=== PATIENT | female | born 1960 | race Caucasian/White ===

== ENCOUNTER 2018-02-25 22:46 | Emergency (ER) | payer BC ==
[~2018-02-25] VITALS: Ht 160 cm; Wt 88.0 kg
[~2018-02-25 22:46] MED LIST: ALEVE220 MG OR; CAFFEINE; CEPHALEXIN500 MG OR; CIPRO500 MG OR; DETROL LA2 MG OR; METHOCARBAMOL500 MG PO; MYLANT OR; NAPROSYN375 MG PO; NAPROSYN500 MG OR; NAPROXEN SOD550 MG OR; NEXIUM20 M1 OR; NEXIUM40 MG PO; PRILOSEC OTC20 MG OR; PYRIDIUM200 MG OR; TOPAMAX50 MG PO; VESICARE10 MG OR; VESICARE10 MG PO
[2018-02-26 00:07] LABS: HEMATOCRIT 37.9 % (37.0-47.0); HEMOGLOBIN 12.4 g/dl (12.0-16.0); IMMATURE GRANULOCYTES 0.4 % (0.0-1.0); MEAN CELL VOLUME 84.4 fL CALC (80.0-100.0); MEAN CORPUSCULAR HGB 27.6 pG CALC (26.0-32.0); MEAN CORPUSCULAR HGB CONC 32.7 g/L CALC (32.0-36.0); NEUT# 6.06 thou/uL (2.00-7.15); RED BLOOD COUNT 4.49 mill/uL (4.20-5.60); RED CELL DISTRI WIDTH 13.6 % (11.5-15.5); URINE BILIRUBIN - DIPSTICK NEGATIVE (NEGATIVE); URINE BLOOD DIPSTICK TRACE-INTACT (NEGATIVE); URINE COLOR YELLOW; URINE GLUCOSE - DIPSTICK NEGATIVE (NEGATIVE); URINE KETONE NEGATIVE (NEGATIVE); URINE PROTEIN - DIPSTICK NEGATIVE (NEG-TRACE)
[2018-02-26 00:08] LABS: URINE CLARITY CLOUDY
[2018-02-26 00:09] LABS: URINE LEUK ESTERASE SMALL (NEGATIVE); URINE NITRITE - DIPSTICK POSITIVE (Negative)
[2018-02-26 00:15] LABS: URINE BACTERIA MODERATE hpf; URINE MUCUS FEW hpf (NONE-FEW); URINE SQUAMOUS EPITHELIAL CELL FEW EPI/hpf (0-FEW); URINE WBC 20-50 WBC/hpf (0-5)
[2018-02-26 00:17] LABS: ALBUMIN 3.9 g/dL (3.2-5.0); ALKALINE PHOSPHATASE 186 u/l (38-126); ANION GAP 11 (6-22 (CALC)); BILIRUBIN, TOTAL 0.5 mg/dL (0.0-1.4); BUN 22 mg/dL (7-17); BUN/CREATININE RATIO 27 (12-20 (CALC)); CARBON DIOXIDE 27 mmol/l (22-30); CHLORIDE 102 mmol/l (95-108); CREATININE 0.8 mg/dL (0.5-1.0); GFR > 60 ML/MIN (>=60 (CALC)); GFR FOR AFR.AMER. > 60 ML/MIN (>=60 (CALC)); POTASSIUM 4.9 mmol/l (3.5-5.1); SGOT/AST 84 u/l (14-36); SGPT/ALT 91 u/l (9-52); SODIUM 135 mmol/l (137-146); TOTAL PROTEIN 7.1 g/dL (6.3-8.2)
[2018-02-26 00:19] LABS: INFLUENZA A NONE DETECTED (NONE DETECT); INFLUENZA B NONE DETECTED (NONE DETECT)
[2018-02-26] MEDS ORDERED: MACRODANTIN100 MG PO (00:29)
[2018-02-26 01:02] VITALS: BP 133/82
== END 2018-02-26 01:04 | disposition home or self-care (01) | DRG 690 ==
LOC: ED 22:46 → EDBD 23:16 → ED 02-26 01:04
PROVIDERS: Family Medicine
DX: N30.00 Acute cystitis without hematuria (principal); B96.20 Unspecified Escherichia coli [E. coli] as the cause of diseases classified elsewhere; B34.9 Viral infection, unspecified; R50.9 Fever, unspecified; R11.0 Nausea; M79.1 Myalgia

== ENCOUNTER 2018-02-26 23:33 | Emergency (ER) | payer BC ==
[~2018-02-26] VITALS: Ht 160 cm; Wt 88.2 kg
[~2018-02-26 23:33] MED LIST changes: +MACRODANTIN100 MG PO
[2018-02-26 23:53] VITALS: BP 119/73
== END 2018-02-26 23:46 | disposition left against medical advice (07) | DRG 951 ==
LOC: ED 23:33
DX: Z91.19 Patient's noncompliance with other medical treatment and regimen (principal)

== ENCOUNTER 2019-09-25 | Emergency (ER) | payer BC ==
[2019-09-25 11:43] LABS: HEMATOCRIT 42.1 % (37.0-47.0); HEMOGLOBIN 13.6 g/dl (12.0-16.0); IMMATURE GRANULOCYTES 0.7 % (0.0-5.0); MEAN CELL VOLUME 85.4 fL CALC (80.0-100.0); MEAN CORPUSCULAR HGB 27.6 pG CALC (26.0-32.0); MEAN CORPUSCULAR HGB CONC 32.3 g/L CALC (32.0-36.0); NEUT# 4.22 thou/uL (2.00-7.15); RED BLOOD COUNT 4.93 mill/uL (4.20-5.60)
[2019-09-25 12:02] LABS: ALBUMIN 3.9 g/dL (3.2-5.0); ALKALINE PHOSPHATASE 100 u/l (38-126); ANION GAP 13 (6-22 (CALC)); BILIRUBIN, TOTAL 0.4 mg/dL (0.0-1.4); BUN 27 mg/dL (7-17); BUN/CREATININE RATIO 40 (12-20 (CALC)); CARBON DIOXIDE 25 mmol/l (22-30); CHLORIDE 103 mmol/l (95-108); CREATININE 0.7 mg/dL (0.5-1.0); GFR > 60 ML/MIN (>=60 (CALC)); GFR FOR AFR.AMER. > 60 ML/MIN (>=60 (CALC)); POTASSIUM 4.7 mmol/l (3.5-5.1); SODIUM 136 mmol/l (137-146); TOTAL PROTEIN 6.7 g/dL (6.3-8.2)
[2019-09-25 12:04] LABS: SGOT/AST 19 u/l (14-36)
[2019-09-25 12:12] LABS: MYOGLOBIN 20 ng/mL (0 - 62)
[2019-09-25 12:31] LABS: URINE BILIRUBIN - DIPSTICK NEGATIVE (NEGATIVE); URINE BLOOD DIPSTICK NEGATIVE (NEGATIVE); URINE COLOR YELLOW; URINE GLUCOSE - DIPSTICK NEGATIVE (NEGATIVE); URINE KETONE NEGATIVE (NEGATIVE); URINE LEUK ESTERASE NEGATIVE (NEGATIVE); URINE NITRITE - DIPSTICK NEGATIVE (Negative); URINE PH 5.5 (4.5-8.0); URINE PROTEIN - DIPSTICK NEGATIVE (NEG-TRACE); URINE SPECIFIC GRAVITY 1.025; URINE UROBILINOGEN - DIPSTICK 0.2 E.U./dL (0.2)
[2019-09-25 12:36] LABS: BARBITURATES NEGATIVE (NEGATIVE); COCAINE NEGATIVE (NEGATIVE); METHADONE NEGATIVE (NEGATIVE); OXCYCODONE NEGATIVE (NEGATIVE); TETRAHYDROCANNABIONOL NEGATIVE (NEGATIVE); TRICYLIC ANTIDEPRESSANTS NEGATIVE (NEGATIVE)
[2019-09-25] MEDS ORDERED: ALBUTEROL SUL0.083 % (12:44)
[2019-09-25] MEDS ORDERED: MEDDOSEPAK PO (12:55)
[2019-09-25] MEDS ORDERED: PEPCID20 MG PO (12:55)
[2019-09-25] MEDS ORDERED: BENADRYL 50MG C50 MG PO (12:55)
== END 2019-09-25 13:12 | disposition home or self-care (01) | DRG 916 ==
PROVIDERS: Emergency Medicine
DX: T78.40XA Allergy, unspecified, initial encounter (principal); X58.XXXA Exposure to other specified factors, initial encounter

== ENCOUNTER 2019-12-02 | Emergency (ER) | payer BC ==
[~2019-12-02] MED LIST changes: +ALBUTEROL SUL0.083 %; +BENADRYL 50MG C50 MG PO; +MEDDOSEPAK PO; +PEPCID20 MG PO
--- NOTE | 2019-12-12 12:04 | NUR ---
COVID 19 results called to patient. Encouraged Stay Home-Stay Safe measures, frequent handwashing with necessary outings or work.
== END 2019-12-02 14:30 | disposition home or self-care (01) | DRG 153 ==
DX: J06.9 Acute upper respiratory infection, unspecified (principal); Z20.828 Contact with and (suspected) exposure to other viral communicable diseases

== ENCOUNTER 2020-04-13 12:49 | Emergency (ER) | payer BC ==
[~2020-04-13] VITALS: Ht 160 cm; Wt 80.0 kg
[2020-04-13 13:46] LABS: HEMATOCRIT 45.4 % (37.0-47.0); HEMOGLOBIN 14.3 g/dl (12.0-16.0); IMMATURE GRANULOCYTES 0.2 % (0.0-5.0); MEAN CELL VOLUME 83.2 fL CALC (80.0-100.0); MEAN CORPUSCULAR HGB 26.2 pG CALC (26.0-32.0); MEAN CORPUSCULAR HGB CONC 31.5 g/dL CAL (32.0-36.0); NEUT# 1.45 thou/uL (2.00-7.15); RED BLOOD COUNT 5.46 mill/uL (4.20-5.60); RED CELL DISTRI WIDTH 13.2 % (11.5-15.5)
[2020-04-13 14:19] LABS: ALBUMIN 4.6 g/dL (3.2-5.0); ALKALINE PHOSPHATASE 97 u/l (38-126); ANION GAP 14 (6-22 (CALC)); BUN 19 mg/dL (7-17); BUN/CREATININE RATIO 27 (12-20 (CALC)); CARBON DIOXIDE 25 mmol/l (22-30); CHLORIDE 102 mmol/l (95-108); CREATININE 0.7 mg/dL (0.5-1.0); GFR > 60 ML/MIN (>=60 (CALC)); GFR FOR AFR.AMER. > 60 ML/MIN (>=60 (CALC)); POTASSIUM 4.2 mmol/l (3.5-5.1); SODIUM 137 mmol/l (137-146); TOTAL PROTEIN 7.7 g/dL (6.3-8.2)
[2020-04-13 14:26] LABS: BILIRUBIN, TOTAL 0.7 mg/dL (0.0-1.4); SGOT/AST 59 u/l (14-36)
[2020-04-13] MEDS ORDERED: PRAVASTATIN10 MG PO (15:02)
[2020-04-13 15:11] LABS: URINE BILIRUBIN - DIPSTICK NEGATIVE (NEGATIVE); URINE BLOOD DIPSTICK NEGATIVE (NEGATIVE); URINE COLOR YELLOW; URINE GLUCOSE - DIPSTICK NEGATIVE (NEGATIVE); URINE KETONE NEGATIVE (NEGATIVE); URINE PROTEIN - DIPSTICK NEGATIVE (NEG-TRACE); URINE UROBILINOGEN - DIPSTICK 0.2 E.U./dL (0.2)
[2020-04-13 15:13] LABS: URINE LEUK ESTERASE SMALL (NEGATIVE); URINE NITRITE - DIPSTICK POSITIVE (Negative)
[2020-04-13 15:24] LABS: URINE BACTERIA MODERATE hpf; URINE SQUAMOUS EPITHELIAL CELL FEW EPI/hpf (0-FEW)
[2020-04-13] MEDS ORDERED: KEFLEX500 MG PO (15:44)
[2020-04-13] MEDS ORDERED: ONDANSETRON4 MG PO (15:44)
[2020-04-13 16:44] VITALS: BP 106/76
== END 2020-04-13 16:44 | disposition home or self-care (01) | DRG 178 ==
LOC: ED 12:49
PROVIDERS: Student in an Organized Health Care Education/Training Program
DX: U07.1 COVID-19 (principal); N39.0 Urinary tract infection, site not specified; J45.909 Unspecified asthma, uncomplicated; B96.20 Unspecified Escherichia coli [E. coli] as the cause of diseases classified elsewhere

== ENCOUNTER 2021-07-06 13:52 | Observation (INO) | payer BC ==
[~2021-07-06] VITALS: Ht 160 cm; Wt 95.0 kg
[~2021-07-06 13:52] MED LIST changes: +KEFLEX500 MG PO; +ONDANSETRON4 MG PO; +PRAVASTATIN10 MG PO
--- NOTE | 2021-07-06 14:00 | NUR ---
PT AMBULATED TO ROOM WITH STEADY GAIT, WHEELCHAIR OFFERED AND DECLINED
[2021-07-06 14:47] LABS: IMMATURE GRANULOCYTES 0.1 % (0.0-5.0); MEAN CELL VOLUME 85.3 fL CALC (80.0-100.0); MEAN CORPUSCULAR HGB 28.2 pG CALC (26.0-32.0); MEAN CORPUSCULAR HGB CONC 33.1 g/dL CAL (32.0-36.0); NEUT# 3.59 thou/uL (2.00-7.15); RED BLOOD COUNT 4.29 mill/uL (4.20-5.60); RED CELL DISTRI WIDTH 13.5 % (11.5-15.5)
[2021-07-06 14:49] LABS: HEMATOCRIT 36.6 % (37.0-47.0); HEMOGLOBIN 12.1 g/dl (12.0-16.0)
--- NOTE | 2021-07-06 15:00 | NUR ---
PT RESTING IN BED, NO CP AT THIS TIME
[2021-07-06 15:06] LABS: ALBUMIN 3.8 g/dL (3.2-5.0); ALKALINE PHOSPHATASE 99 u/l (38-126); ANION GAP 9 (6-22 (CALC)); BILIRUBIN, TOTAL 0.5 mg/dL (0.0-1.4); BUN 26 mg/dL (7-17); BUN/CREATININE RATIO 39 (12-20 (CALC)); CARBON DIOXIDE 27 mmol/l (22-30); CHLORIDE 105 mmol/l (95-108); CREATININE 0.7 mg/dL (0.5-1.0); GFR > 60 ML/MIN (>=60 (CALC)); GFR FOR AFR.AMER. > 60 ML/MIN (>=60 (CALC)); POTASSIUM 4.6 mmol/l (3.5-5.1); SGOT/AST 26 u/l (14-36); SODIUM 137 mmol/l (137-146); TOTAL PROTEIN 6.5 g/dL (6.3-8.2)
--- NOTE | 2021-07-06 16:28 | NUR ---
PT AWAITING POSSIBLE ADMISSION, VSS, ON DELICATESSEN DEPARTMENT MANAGER
--- NOTE | 2021-07-06 19:12 | NUR ---
GAVE REPORT TO MCKAY SMART, PT TRANSFERING TO THE FLOOR
--- NOTE | 2021-07-06 21:00 | NUR ---
W/P/D SKIN NO ST T CHANGES NO C/O PAIN OF ANY ORIGIN.
--- NOTE | 2021-07-06 21:07 | NUR ---
PT TRANSPORTED VIA WC ON TELE IN STABLE CONDITION
--- NOTE | 2021-07-06 21:08 | NUR ---
PT RECEIVED FROM ED TO ROOM 279. ARRIVES VIA W/C ACCOMPANIED BY [facility]. PT AMBULATORY TO BED. GAIT UNSTEADY. PT DENIES PAIN AT THIS TIME. ORIENTED TO UNIT, ROOM, CALL [facility], LIGHTS, TV. ICE WATER PROVIDED. CALL [facility] WITHIN REACH. AGREES TO CALL PRN.
--- NOTE | 2021-07-06 21:08 | NUR ---
PHYSICAL ASSESMENT COMPLETE. PT CURRENTLY DENIES PAIN OR DISCOMFORT. SCHEDULED MEDICATIONS AND PRN MEDICATION ADMINISTERED, SEE E-MAR. PT DENIES ANY NEEDS AT THIS TIME. PLAN OF CARE REVIEWED, PT DENIES QUESTIONS, VERBALIZES UNDERSTANDING. ITEMS WITHIN REACH, BED LOCKED IN LOW POSITION W/ BEDRAILS UP X2. CALL [facility] WITHIN REACH, AGREES TO CALL PRN.
[2021-07-06 21:10] VITALS: BP 137/81
[2021-07-06 21:14] LABS: URINE BILIRUBIN - DIPSTICK NEGATIVE (NEGATIVE); URINE BLOOD DIPSTICK NEGATIVE (NEGATIVE); URINE COLOR YELLOW; URINE GLUCOSE - DIPSTICK NEGATIVE (NEGATIVE); URINE KETONE NEGATIVE (NEGATIVE); URINE LEUK ESTERASE TRACE (NEGATIVE); URINE PROTEIN - DIPSTICK NEGATIVE (NEG-TRACE); URINE SPECIFIC GRAVITY 1.015; URINE UROBILINOGEN - DIPSTICK 0.2 E.U./dL (0.2)
[2021-07-06 21:16] LABS: URINE NITRITE - DIPSTICK NEGATIVE (Negative)
[2021-07-06 23:56] VITALS: BP 134/65
--- NOTE | 2021-07-07 01:21 | NUR ---
PT LAYING IN BED WITH EYES CLOSED, APPEARS TO BE SLEEPING, APPEARS COMFORTABLE AND IN NO DISTRESS. RESPIRATIONS REGULAR AND UNLABORED. ITEMS REMAIN WITHIN REACH, CALL [facility] REMAINS WITHIN REACH. BED REMAINS LOCKED AND IN LOW POSITION WITH BEDRAILS UP X2. WILL CONTINUE TO MONITOR.
[2021-07-07 04:00] VITALS: BP 132/64
--- NOTE | 2021-07-07 04:00 | NUR ---
PT RESTING IN BED, NO SIGNS OF DISTRESS NOTED, RESP EVEN AND UNLABORED. PT VOICES NO NEEDS OR COMPLAINTS AT THIS TIME. CALL LIGHT IN REACH, CONTINUE TO MONITOR.
[2021-07-07 06:13] LABS: HEMATOCRIT 39.7 % (37.0-47.0); HEMOGLOBIN 12.6 g/dl (12.0-16.0); MEAN CELL VOLUME 88.6 fL CALC (80.0-100.0); MEAN CORPUSCULAR HGB 28.1 pG CALC (26.0-32.0); MEAN CORPUSCULAR HGB CONC 31.7 g/dL CAL (32.0-36.0); RED BLOOD COUNT 4.48 mill/uL (4.20-5.60); RED CELL DISTRI WIDTH 13.4 % (11.5-15.5)
[2021-07-07 06:33] LABS: ANION GAP 10 (6-22 (CALC)); BUN 21 mg/dL (7-17); BUN/CREATININE RATIO 27 (12-20 (CALC)); CALCULATED LDLCHOLESTEROL 105 mg/dL (62-129 (CALC)); CARBON DIOXIDE 27 mmol/l (22-30); CHLORIDE 106 mmol/l (95-108); CHOLESTEROL HDL RATIO 3.5 (<4.4 (CALC)); CREATININE 0.8 mg/dL (0.5-1.0); GFR > 60 ML/MIN (>=60 (CALC)); GFR FOR AFR.AMER. > 60 ML/MIN (>=60 (CALC)); HDL CHOLESTEROL 54 mg/dL (>=40); SODIUM 140 mmol/l (137-146); TOTAL CHOLESTEROL 189 mg/dl (0-199); TOTAL TRIGLYCERIDES 149 mg/dl (30-149); VLDL CHOLESTROL 30 mg/dl (2-49 (CALC))
[2021-07-07 07:54] VITALS: BP 172/76
--- NOTE | 2021-07-07 09:00 | NUR ---
PT SEEN AWAKE, ALERT, ORIENTED X 3. LUNGS CLEAR, RA. NO COMPLAINT OF CHEST PAIN OR SHORTNESS OF BREATH.
--- NOTE | 2021-07-07 12:25 | NUR ---
PT VERBALIZES UNDERSTANDING OF DC INSTRUCTIONS, AMBULATES TO LOBBY WITH STAFF ACCOMPANYING. PT IN NO DISTRESS, NO COMPLAINTS.
== END 2021-07-07 12:21 | disposition home or self-care (01) | DRG 313 ==
LOC: ED 13:52 → ED-I 15:41 → ED 15:52 → MS2 15:53
PROVIDERS: Family Medicine; ADMIT Hospitalist; ATTEND Hospitalist
DX: R07.9 Chest pain, unspecified (principal); I10 Essential (primary) hypertension; J45.909 Unspecified asthma, uncomplicated; K21.9 Gastro-esophageal reflux disease without esophagitis; E78.5 Hyperlipidemia, unspecified; E66.9 Obesity, unspecified; Z20.822 Contact with and (suspected) exposure to COVID-19
CPT/HCPCS: G0378; J1650

== ENCOUNTER 2024-10-15 18:52 | Emergency (ER) | payer BC ==
[2024-10-15] VITALS (7 sets, daily range): BP systolic 108–178; BP diastolic 67–99
[~2024-10-15] VITALS: Ht 160 cm; Wt 85.0 kg
[~2024-10-15 18:52] MED LIST changes: +MOTRIN800 MG PO
[2024-10-15] MEDS ORDERED: ASPIRIN 81 MG/TAB PO ONE (19:15)
[2024-10-15] MEDS ORDERED: NITROGLYCERIN 0.4 MG/TAB SL ONE (19:15)
[2024-10-15 19:21] LABS: BASO% 0.4 % (0-3); EOS% 0.8 % (0-8); HEMATOCRIT 42.6 % (37.0-47.0); HEMOGLOBIN 13.9 g/dl (12.0-16.0); IMMATURE GRANULOCYTES 0.2 % (0.0-5.0); LYMPH% 30.4 % (15-41); MEAN CELL VOLUME 84.5 fL CALC (80.0-100.0); MEAN CORPUSCULAR HGB 27.6 pG CALC (26.0-32.0); MEAN CORPUSCULAR HGB CONC 32.6 g/dL CAL (32.0-36.0); MONO% 6.9 % (2-13); NEUT# 6.54 thou/uL (2.00-7.15); NEUT% 61.3 % (42-76); RED BLOOD COUNT 5.04 mill/uL (4.20-5.60); RED CELL DISTRI WIDTH 13.5 % (11.5-15.5)
[2024-10-15 19:36] LABS: ALBUMIN 4.3 g/dL (3.2-5.0); ALKALINE PHOSPHATASE 69 u/l (38-126); ANION GAP 13 (6-22 (CALC)); BILIRUBIN, TOTAL 0.7 mg/dL (0.02-1.3); BUN 25 mg/dL (8-23); BUN/CREATININE RATIO 29 (12-20 (CALC)); CARBON DIOXIDE 23 mmol/l (22-30); CHLORIDE 105 mmol/l (95-108); CREATININE 0.9 mg/dL (0.5-1.0); ESTIMATED GFR 72 ML/MIN (>=90 (CALC)); POTASSIUM 3.8 mmol/l (3.5-5.1); SGOT/AST 32 u/l (9-36); SODIUM 136 mmol/l (137-146); TOTAL PROTEIN 7.2 g/dL (6.3-8.2)
[2024-10-15 19:42] LABS: LIPASE 101 u/l (23-300)
== END 2024-10-15 22:04 | disposition home or self-care (01) | DRG 313 ==
LOC: ED 18:52
PROVIDERS: Nurse Practitioner
DX: R07.9 Chest pain, unspecified (principal); J45.909 Unspecified asthma, uncomplicated; K21.9 Gastro-esophageal reflux disease without esophagitis